=== PATIENT | female | born 1995 | race Two or more races ===

== ENCOUNTER 2022-03-08 23:17 | Emergency (ER) | payer MEDICAID, OTHER ==
[~2022-03-08] VITALS: Ht 165.1 cm; Wt 72.0 kg
[2022-03-08 23:23] VITALS: BP 122/71
[2022-03-09] MEDS ORDERED: KETOROLAC TROMETH 60MG/2ML VIAL IM ONE (03:15)
== END 2022-03-09 03:00 | disposition left against medical advice (07) ==
LOC: ER 23:17 → EDBD 23:17 → ER 03-09 03:00
DX: M79.10 Myalgia, unspecified site (principal); V89.2XXA Person injured in unspecified motor-vehicle accident, traffic, initial encounter; Y93.89 Activity, other specified; Y92.89 Other specified places as the place of occurrence of the external cause; Y99.8 Other external cause status
CPT/HCPCS: 96372; 99283; J1885